=== PATIENT | female | born 1955 ===

== ENCOUNTER 2017-07-31 16:20 | Emergency (ER) | payer OTHER ==
[2017-07-31 18:04] LABS: BASO % 0.5 % (0.0-2.0); EOS # 0.4 K/uL (0.0-0.7); EOS % 8.3 % (0.0-4.0); HEMOGLOBIN 13.7 g/dL (12.0-16.0); LYMPH # 1.9 K/uL (1.0-4.3); LYMPH % 35.4 % (20.0-40.0); MEAN CELL VOLUME 88.8 fl (81.0-99.0); MEAN CORPUSCULAR HGB CONC 33.8 g/dL (33.0-37.0); MEAN PLATELET VOLUME 7.6 fl (7.2-11.7); MONO # 0.5 K/uL (0.0-0.8); MONO % 8.6 % (0.0-10.0); NEUT # 2.5 K/uL (1.8-7.0); NEUT % 47.2 % (50.0-75.0); RBC 4.55 Mil/uL (3.80-5.20); RED CELL DISTRIBUTION WIDTH 13.8 % (11.5-14.5); WHITE BLOOD COUNT 5.3 K/uL (4.8-10.8)
[2017-07-31 18:14] LABS: ALB/GLOB RATIO 1.1 (1.0-2.1); ALBUMIN 4.2 g/dL (3.5-5.0); ALT/SGPT 38 U/L (9-52); AST/SGOT 33 U/L (14-36); BLOOD UREA NITROGEN 18 mg/dl (7-17); CALCIUM 10.1 mg/dL (8.4-10.2); GFR AFRICAN-AMERICAN > 60; GFR NON-AFRICAN AMERICAN > 60; LIPASE 32 U/L (23-300)
--- NOTE | 2017-07-31 18:22 | ED PDOC ---
HPI: Abdomen Time Seen by Provider: 07/31/17 16:44 Chief Complaint (Nursing): GI Problem Chief Complaint (Provider): GI Problem History Per: Patient History/Exam Limitations: no limitations Onset/Duration Of Symptoms: Hrs Outside of [place] travel?: No Current Symptoms Are (Timing): Still Present Additional Complaint(s): 61 year old female, with a past medical history of gastritis, presents to the ED with complaints of one episode of Hematemesis. Patient presents with no other complaints. Denies bloody stool and abdominal pain. PMD: Dr. Mantilla Past Medical History Reviewed: Historical Data, Nursing Documentation, Vital Signs Vital Signs: Last Vital Signs Temp 98.3 F 07/31/17 18:51 Pulse 78 07/31/17 18:51 Resp 18 07/31/17 18:51 BP 160/77 H 07/31/17 18:51 Pulse Ox 99 07/31/17 18:51 - Medical History PMH: Gastritis - Surgical History Surgical History: No Surg Hx - Family History Family History: States: Unknown Family Hx - Home Medications Home Medications: Ambulatory Orders Medication Instructions Recorded Nitrofurantoin Macrocrystals 100 mg PO BID #13 cap 05/02/16 [Macrobid] - Allergies Allergies/Adverse Reactions: Allergies Allergy/AdvReac Type Severity Reaction Status Date / Time kiwi Allergy Mild SWELLING Verified 05/02/16 00:22 Review of Systems ROS Statement: Except As Marked, All Systems Reviewed And Found Negative Gastrointestinal: Positive for: Hematemesis. Negative for: Abdominal Pain, Hematochezia Physical Exam - Reviewed Nursing Documentation Reviewed: Yes Vital Signs Reviewed: Yes - Physical Exam Appears: Positive for: Non-toxic, No Acute Distress Head Exam: Positive for: ATRAUMATIC, NORMOCEPHALIC Skin: Positive for: Normal Color, Warm, Dry Eye Exam: Positive for: EOMI, Normal appearance, PERRL ENT: Positive for: Normal ENT Inspection Neck: Positive for: Normal, Painless ROM, Supple Cardiovascular/Chest: Positive for: Regular Rate, Rhythm. Negative for: Murmur Respiratory: Positive for: Normal Breath Sounds. Negative for: Respiratory Distress Gastrointestinal/Abdominal: Positive for: Normal Exam, Soft. Negative for: Tenderness Back: Positive for: Normal Inspection Extremity: Positive for: Normal ROM. Negative for: Pedal Edema, Deformity Neurologic/Psych: Positive for: Alert, Oriented. Negative for: Motor/Sensory Deficits - Laboratory Results Result Diagrams: 07/31/17 18:00 07/31/17 18:00 - ECG O2 Sat by Pulse Oximetry: 96 (RA) Pulse Ox Interpretation: Normal - Progress Re-evaluation Time: 18:00 Condition: Re-examined, Improved Medical Decision Making Medical Decision Making: Time: 1731 Impression: One episode of hematemesis Unlikely upper GI Bleed. Most likely vomiting from GERD and Gastritis Plan: -- Type and Screen -- CMP -- Lipase -- ED Urine Dipstick -- CBC with differentials Time: 1820 -- Patient presents with no continuous vomiting and feels much better. Patient states there are no additional complaints at this time and is stable for discharge. Scribe Attestation: Documented by Antonina Mauricio, acting as a scribe for Dr. Elina Salcido MD. Provider Scribe Attestation: All medical record entries made by the Scribe were at my direction and personally dictated by me. I have reviewed the chart and agree that the record accurately reflects my personal performance of the history, physical exam, medical decision making, and the department course for this patient. I have also personally directed, reviewed, and agree with the discharge instructions and disposition. Disposition - Clinical Impression Clinical Impression: Vomiting blood, Chronic cough - Patient ED Disposition Is Patient to be Admitted: No Doctor Will See Patient In The: Office Counseled Patient/Family Regarding: Studies Performed, Diagnosis, Need For Followup - Disposition Referrals: Miguel Mantilla MD [Primary Care Provider] - Disposition: Routine/Home Disposition Time: 18:00 Condition: GOOD Additional Instructions: Continue taking your medications as instructed. Follow up with your PCP in 2-3 days. Instructions: Acid Reflux (Gastroesophageal Reflux Disease) in Adults
[2017-07-31 18:53] VITALS: BP 160/77; PULSE 78; RESP 18; TEMP 98.3
[2017-08-01 09:34] VITALS: O2SAT 96
== END 2017-07-31 18:45 | disposition home or self-care (01) ==
LOC: H.ER 16:20
DX: K92.0 Hematemesis (principal); R05 Cough
CPT/HCPCS: 80053; 83690; 85025; 86850; 86900; 96374; 96375; 99284; C9113